=== PATIENT | female | born 1960 | race Hispanic/Latino ===

== ENCOUNTER 2017-10-07 08:01 | Day surgery (SDC) | payer BC ==
[~2017-10-07] VITALS: Ht 158.8 cm; Wt 90.7 kg
[~2017-10-07 08:01] MED LIST: ACETTAB3 OR; ADDERALL20 MG PO; AMITRIPTYLIN25 MG OR; ATENOLOL25 MG; ATENOLOL25 MG PO; CYMBALTA30 MG PO; CYMBALTA60 MG; CYMBALTA60 MG OR; IMODIUM2 MG PO; MECLIZINE25 MG OR; MECLIZINE25 MG PO; NAPROSYN500 MG OR; TOPAMAX50 MG; TOPAMAX50 MG OR; ZOFRAN ODT4 MG PO; ZPAK PO
[2017-10-07] MEDS ORDERED: PERCOCET 10/31 COMBO PO (16:20)
[2017-10-07 16:44] VITALS: BP 139/80
== END 2017-10-07 17:00 | disposition home or self-care (01) | DRG 42 ==
LOC: ORM 08:01
PROVIDERS: ATTEND Orthopaedic Surgery
PROC: 01N50ZZ Release Median Nerve, Open Approach (ICD-10-PCS; principal; 2017-10-07)
DX: G56.03 Carpal tunnel syndrome, bilateral upper limbs (principal); F17.210 Nicotine dependence, cigarettes, uncomplicated; Z98.84 Bariatric surgery status

== ENCOUNTER 2018-01-27 06:00 | Day surgery (SDC) | payer BC ==
[~2018-01-27] VITALS: Ht 157.5 cm; Wt 93.0 kg
[~2018-01-27 06:00] MED LIST changes: +PERCOCET 10/31 COMBO PO
[2018-01-27] MEDS ORDERED: PERCOCET 10/31 COMBO PO (08:47)
[2018-01-27 09:29] VITALS: BP 145/82
== END 2018-01-27 09:35 | disposition home or self-care (01) | DRG 42 ==
LOC: ORM 06:00
PROVIDERS: ATTEND Orthopaedic Surgery
PROC: 01N50ZZ Release Median Nerve, Open Approach (ICD-10-PCS; principal; 2018-01-27)
DX: G56.02 Carpal tunnel syndrome, left upper limb (principal); I10 Essential (primary) hypertension; E78.5 Hyperlipidemia, unspecified; F90.9 Attention-deficit hyperactivity disorder, unspecified type; F17.210 Nicotine dependence, cigarettes, uncomplicated

== ENCOUNTER 2021-05-18 11:27 | Emergency (ER) | payer SELFPAY ==
[~2021-05-18] VITALS: Ht 157.5 cm; Wt 100.0 kg
[2021-05-18] MEDS ORDERED: ATENOLOL25 MG PO (11:50)
[2021-05-18 11:52] VITALS: BP 117/82
[2021-05-18 12:00] VITALS: BP 122/77
[2021-05-18 12:29] LABS: URINE BILIRUBIN - DIPSTICK NEGATIVE (NEGATIVE); URINE BLOOD DIPSTICK SMALL (NEGATIVE); URINE GLUCOSE - DIPSTICK NEGATIVE (NEGATIVE); URINE KETONE NEGATIVE (NEGATIVE); URINE LEUK ESTERASE NEGATIVE (NEGATIVE); URINE PROTEIN - DIPSTICK TRACE mg/dL (NEG-TRACE); URINE SPECIFIC GRAVITY >=1.030; URINE UROBILINOGEN - DIPSTICK 0.2 E.U./dL (0.2)
[2021-05-18 12:34] LABS: URINE NITRITE - DIPSTICK NEGATIVE (Negative)
[2021-05-18 12:35] LABS: URINE COLOR DK. YELLOW
[2021-05-18 12:36] LABS: URINE EPITHELIAL CELLS FEW EPI/hpf (0-FEW)
[2021-05-18 13:26] LABS: HEMATOCRIT 43.8 % (37.0-47.0); HEMOGLOBIN 13.7 g/dl (12.0-16.0); IMMATURE GRANULOCYTES 0.2 % (0.0-5.0); MEAN CELL VOLUME 94.4 fL CALC (80.0-100.0); MEAN CORPUSCULAR HGB 29.5 pG CALC (26.0-32.0); MEAN CORPUSCULAR HGB CONC 31.3 g/dL CAL (32.0-36.0); NEUT# 9.17 thou/uL (2.00-7.15); RED BLOOD COUNT 4.64 mill/uL (4.20-5.60); RED CELL DISTRI WIDTH 14.2 % (11.5-15.5)
[2021-05-18 13:47] LABS: ALBUMIN 4.3 g/dL (3.2-5.0); ALKALINE PHOSPHATASE 114 u/l (38-126); AMYLASE 67 u/l (30-110); ANION GAP 15 (6-22 (CALC)); BILIRUBIN, TOTAL 0.9 mg/dL (0.0-1.4); BUN 13 mg/dL (8-23); BUN/CREATININE RATIO 18 (12-20 (CALC)); CARBON DIOXIDE 19 mmol/l (22-30); CHLORIDE 110 mmol/l (95-108); CREATININE 0.7 mg/dL (0.5-1.0); GFR > 60 ML/MIN (>=60 (CALC)); GFR FOR AFR.AMER. > 60 ML/MIN (>=60 (CALC)); LIPASE 26 u/l (23-300); POTASSIUM 3.9 mmol/l (3.5-5.1); SGOT/AST 22 u/l (9-36); SODIUM 140 mmol/l (137-146); TOTAL PROTEIN 8.8 g/dL (6.3-8.2)
[2021-05-18 13:48] LABS: ACT PARTIAL THROMBO TIME 25.8 SECONDS (20.0-32.5); PROTHROMBIN TIME 10.3 SECONDS (9.0-12.5)
[2021-05-18] MEDS ORDERED: LEVAQUIN750 M1 PO ×2 (15:35→15:42)
[2021-05-18 15:40] VITALS: BP 122/77
== END 2021-05-18 15:47 | disposition home or self-care (01) | DRG 195 ==
LOC: ED 11:27
DX: J18.9 Pneumonia, unspecified organism (principal); D25.9 Leiomyoma of uterus, unspecified; F32.A Depression, unspecified; F17.200 Nicotine dependence, unspecified, uncomplicated

== ENCOUNTER 2021-10-12 07:30 | Emergency (ER) | payer BC ==
[~2021-10-12] VITALS: Ht 157.5 cm; Wt 90.7 kg
[2021-10-12] VITALS (18 sets, daily range): BP systolic 84–1041; BP diastolic 52–78
[~2021-10-12 07:30] MED LIST changes: +LEVAQUIN750 M1 PO
[2021-10-12 08:09] LABS: IMMATURE GRANULOCYTES 0.3 % (0.0-5.0); MEAN CORPUSCULAR HGB 24.7 pG CALC (26.0-32.0); MEAN CORPUSCULAR HGB CONC 29.8 g/dL CAL (32.0-36.0); NEUT# 11.6 thou/uL (2.00-7.15); RED BLOOD COUNT 2.95 mill/uL (4.20-5.60); RED CELL DISTRI WIDTH 15.3 % (11.5-15.5)
[2021-10-12 08:13] LABS: HEMATOCRIT 24.5 % (37.0-47.0); HEMOGLOBIN 7.3 g/dl (12.0-16.0); MEAN CELL VOLUME 83.1 fL CALC (80.0-100.0)
[2021-10-12 08:30] LABS: ALKALINE PHOSPHATASE 73 u/l (38-126); ANION GAP 12 (6-22 (CALC)); BUN 8 mg/dL (8-23); BUN/CREATININE RATIO 9 (12-20 (CALC)); CARBON DIOXIDE 21 mmol/l (22-30); CHLORIDE 108 mmol/l (95-108); CREATININE 0.9 mg/dL (0.5-1.0); GFR FOR AFR.AMER. > 60 ML/MIN (>=60 (CALC)); GFR OTHER RACES > 60 ML/MIN (>=60 (CALC)); POTASSIUM 3.4 mmol/l (3.5-5.1); SGOT/AST 24 u/l (9-36); SODIUM 139 mmol/l (137-146)
[2021-10-12 08:31] LABS: BILIRUBIN, TOTAL 0.3 mg/dL (0.0-1.4); TOTAL PROTEIN 6.6 g/dL (6.3-8.2)
[2021-10-12 10:45] LABS: URINE BILIRUBIN - DIPSTICK NEGATIVE (NEGATIVE); URINE BLOOD DIPSTICK LARGE (NEGATIVE); URINE COLOR YELLOW; URINE GLUCOSE - DIPSTICK NEGATIVE (NEGATIVE); URINE KETONE NEGATIVE (NEGATIVE); URINE PH 5.5 (4.5-8.0); URINE PROTEIN - DIPSTICK TRACE mg/dL (NEG-TRACE); URINE SPECIFIC GRAVITY 1.025; URINE UROBILINOGEN - DIPSTICK 0.2 E.U./dL (0.2)
[2021-10-12 10:47] LABS: URINE LEUK ESTERASE SMALL (NEGATIVE); URINE NITRITE - DIPSTICK NEGATIVE (Negative)
[2021-10-12 10:48] LABS: URINE BACTERIA FEW hpf; URINE EPITHELIAL CELLS FEW EPI/hpf (0-FEW); URINE RBC 50-100 RBC/hpf (0-5)
== END 2021-10-12 13:01 | disposition short-term general hospital (02) | DRG 872 ==
LOC: ED 07:30
PROVIDERS: Family Medicine
PROC: 30233N1 Transfusion of Nonautologous Red Blood Cells into Peripheral Vein, Percutaneous Approach (ICD-10-PCS; principal; 2021-10-12)
PROC: 30233N1 Transfusion of Nonautologous Red Blood Cells into Peripheral Vein, Percutaneous Approach (ICD-10-PCS; 2021-10-12)
DX: A41.9 Sepsis, unspecified organism (principal); N85.9 Noninflammatory disorder of uterus, unspecified; F32.A Depression, unspecified; Z98.84 Bariatric surgery status
CPT/HCPCS: P9016; Q9967

== ENCOUNTER 2022-03-14 23:11 | Emergency (ER) | payer BC ==
[~2022-03-14] VITALS: Ht 157.5 cm; Wt 72.0 kg
[~2022-03-14 23:11] MED LIST changes: -CYMBALTA30 MG PO; +CYMBALTA60 MG PO
[2022-03-14 23:56] VITALS: BP 110/66
[2022-03-15] VITALS (14 sets, daily range): BP systolic 62–134; BP diastolic 44–110
[2022-03-15] MEDS ORDERED: ONDANSETRON4 MG PO (00:44)
[2022-03-15] MEDS ORDERED: FERRAPLUS 90 PO (00:44)
[2022-03-15 00:59] LABS: BASO% 0.6 % (0-3); EOS% 1.3 % (0-8); IMMATURE GRANULOCYTES 0.7 % (0.0-5.0); LYMPH% 21.9 % (15-41); MEAN CELL VOLUME 85.3 fL CALC (80.0-100.0); MEAN CORPUSCULAR HGB 28.4 pG CALC (26.0-32.0); MEAN CORPUSCULAR HGB CONC 33.2 g/dL CAL (32.0-36.0); MONO% 17.8 % (2-13); NEUT# 4.78 thou/uL (2.00-7.15); NEUT% 57.7 % (42-76); RED BLOOD COUNT 4.16 mill/uL (4.20-5.60); RED CELL DISTRI WIDTH 14.8 % (11.5-15.5)
[2022-03-15 01:01] LABS: HEMATOCRIT 35.5 % (37.0-47.0); HEMOGLOBIN 11.8 g/dl (12.0-16.0)
[2022-03-15 01:20] LABS: ALBUMIN 3.5 g/dL (3.2-5.0); AMYLASE 44 u/l (30-110); BILIRUBIN, TOTAL 0.3 mg/dL (0.0-1.4); BUN 14 mg/dL (8-23); BUN/CREATININE RATIO 16 (12-20 (CALC)); CARBON DIOXIDE 25 mmol/l (22-30); CHLORIDE 102 mmol/l (95-108); CREATININE 0.9 mg/dL (0.5-1.0); GFR FOR AFR.AMER. > 60 ML/MIN (>=60 (CALC)); GFR OTHER RACES > 60 ML/MIN (>=60 (CALC)); LIPASE < 10 u/l (23-300); SODIUM 139 mmol/l (137-146); TOTAL PROTEIN 7.7 g/dL (6.3-8.2)
[2022-03-15 01:22] LABS: ALKALINE PHOSPHATASE 129 u/l (38-126); ANION GAP 15 (6-22 (CALC)); POTASSIUM 3.1 mmol/l (3.5-5.1); SGOT/AST 21 u/l (9-36)
[2022-03-15] MEDS ORDERED: ULTRAM50 MG PO (03:03)
[2022-03-15] MEDS ORDERED: METRONIDAZOLE500 MG PO (03:03)
[2022-03-15] MEDS ORDERED: CIPROFLOXACN500 MG PO (03:03)
== END 2022-03-15 06:37 | disposition home or self-care (01) | DRG 392 ==
LOC: ED 23:11
PROVIDERS: Emergency Medicine
DX: K52.9 Noninfective gastroenteritis and colitis, unspecified (principal)
CPT/HCPCS: J1956; Q9967